=== PATIENT | female | born 1965 | race Caucasian/White ===

== ENCOUNTER 2017-10-14 20:02 | Emergency (ER) | payer BC ==
[~2017-10-14] VITALS: Ht 175.3 cm; Wt 81.6 kg
--- NOTE | 2017-10-14 20:15 | NUR ---
PT COMES TO ER WITH C/O BILATERAL REDNESS, SWELLING, + INFLAMMATION OF LOWER EXTREMITIES [place] RIGHT LOWER EXTREMITY FOR 24 HRS. PT AAOX4. PT ABLE TO SPEAK IN COMPLETE SENTENCES. PT RESPONSIVE TO VERBAL + TACTILE STIMULI. PT ABLE TO MAKE NEEDS KNOWN. RESPIRATIONS EVEN + UNLABORED. NO SOB/CONGESTION NOTED. NO CHEST PAIN NOTED. NO GI/ DISTRESS NOTED. PT RESTING IN BED IN LOWEST POSITION. WHEELS LOCKED. CALL LIGHT WITHIN REACH. PT VSS. PT'S FRIEND AT BEDSIDE.
[2017-10-14] MEDS ORDERED: ONDA4TAB8 PO (20:19)
[2017-10-14] MEDS ORDERED: DIPH1TAB PO (20:19)
[2017-10-14] MEDS ORDERED: AMIT10TA6 PO (20:19)
--- NOTE | 2017-10-14 20:20 | NUR ---
VEE ARTEAGA AT BEDSIDE FOR MSE.
[2017-10-14] MEDS ORDERED: VANCOMYCIN IV 1,000 MG in IV DEXTROSE 5% 250 ML IV ONE (20:45)
[2017-10-14] MEDS ORDERED: MORPHINE SULFATE 2 MG/1 ML DISP.SYRIN IV ONE (20:45)
[2017-10-14] MEDS ORDERED: ONDANSETRON 4 MG/2 ML VIAL IV ONE (20:45)
--- NOTE | 2017-10-14 20:45 | NUR ---
LAB AT BEDSIDE FOR BLOOD DRAW.
[2017-10-14 20:54] LABS: BASOPHILS % (AUTO) 0.5 % (0.0-2.0); EOSINOPHILS # (AUTO) 0.4 K/uL (0.0-0.7); EOSINOPHILS % (AUTO) 4.4 % (0.0-7.0); HEMATOCRIT 26.5 % (31.2-41.9); HEMOGLOBIN 8.5 g/dL (10.9-14.3); LYMPHOCYTES # (AUTO) 1.9 K/uL (20.0-40.0); LYMPHOCYTES % (AUTO) 22.1 % (20.5-51.5); MEAN CORPUSCULAR HEMOGLOBIN 22.7 uug (24.7-32.8); MEAN CORPUSCULAR HGB CONC 32 g/dL (32.3-35.6); MEAN CORPUSCULAR VOLUME 70.8 fL (75.5-95.3); MONOCYTES # (AUTO) 0.8 K/uL (2.0-10.0); MONOCYTES % (AUTO) 9.6 % (0.0-11.0); NEUTROPHILS # (AUTO) 5.4 K/uL (1.8-8.9); NEUTROPHILS % (AUTO) 63.4 % (38.5-71.5); PLATELET COUNT (AUTO) 199 K/uL (179-408); RED BLOOD CELL COUNT(AUTO) 3.74 MIL/uL (3.63-4.92); WHITE BLOOD COUNT (AUTO) 8.6 K/uL (3.8-11.8)
[2017-10-14 21:04] LABS: *BLOOD, URINE 2+ (NEGATIVE); *CLARITY,URINE SLIGHTLY CLOUDY (CLEAR); *COLOR,URINE YELLOW (YELLOW); *KETONES,URINE TRACE (NEGATIVE); *PROTEIN,URINE NEGATIVE (NEGATIVE); *UROBILINOGEN,URINE 0.2 E.U./dl (NORMAL); LEUKOCYTE ESTERASE ,URINE 1+ (NEGATIVE); NITRITE, URINE POSITIVE (NEGATIVE); PH,URINE 5.5 (5.0-8.0); UGLUCOSE NEGATIVE (NEGATIVE)
[2017-10-14 21:16] LABS: *BILIRUBIN,URIN 1+ (NEGATIVE); BACTERIA,URINE MANY /HPF (NONE SEEN); SQUAMOUS EPITHELIAL CELL,UR FEW /HPF (NONE SEEN); WBC,URINE 50-80 /HPF (0-3)
[2017-10-14 21:18] LABS: BILIRUBIN,DIRECT 0.1 mg/dL (0.0-0.2); BILIRUBIN,TOTAL 0.4 mg/dL (0.2-1.0); CREATININE 1.5 mg/dL (0.6-1.3); TOTAL PROTEIN, SERUM 7.8 g/dL (6.4-8.2)
[2017-10-14] MEDS ORDERED: ONDANSETRON 4 MG/2 ML VIAL ONE (21:26)
[2017-10-14] MEDS ORDERED: VANCOMYCIN IV 200 ML ONE (21:26)
[2017-10-14] MEDS ORDERED: MORPHINE SULFATE 4 MG/1 ML DISP.SYRIN ONE (21:26)
--- NOTE | 2017-10-14 21:55 | NUR ---
ULTRASOUND AT BEDSIDE.
--- NOTE | 2017-10-14 22:27 | NUR ---
PT RESTING IN BED COMFORTABLY WITH EYES CLOSED. VSS. PT'S FRIEND AT BEDSIDE.
[2017-10-14] MEDS ORDERED: CEPHALEXIN MONOHYDRATE 500 MG CAPSULE PO ONE (22:45)
[2017-10-14] MEDS ORDERED: CEPHALEXIN MONOHYDRATE 500 MG CAPSULE ONE (22:47)
[2017-10-14 23:11] VITALS: BP 134/68
--- NOTE | 2017-10-14 23:12 | NUR ---
Patient discharged to home in stable conditon. Written and verbal after care instructions given. Patient verbalizes understanding of instructions. Patient left ER accompanied by friend. All belongings with pt. VSS. No distress noted.
== END 2017-10-14 23:38 | disposition home or self-care (01) ==
LOC: ER 20:08
DX: N39.0 Urinary tract infection, site not specified (principal); L03.115 Cellulitis of right lower limb; F17.200 Nicotine dependence, unspecified, uncomplicated; Z88.2 Allergy status to sulfonamides; Z88.8 Allergy status to other drugs, medicaments and biological substances; G43.909 Migraine, unspecified, not intractable, without status migrainosus
CPT/HCPCS: 36415; 70030-TC; 71045; 85025; 85730; 87077; 87086; 93005; A4663; J2270; J2405; J3370